=== PATIENT | male | born 1965 | race African-American/Black ===

== ENCOUNTER 2022-08-05 05:51 | Observation (INO) | payer OTHER ==
[2022-08-01 11:31] VITALS: BMI 37.3
[2022-08-05] MEDS ORDERED: Oxymetazoline HCl 0.05% ( 15 ML ) ONE (06:57)
[2022-08-05] MEDS ORDERED: Acetaminophen 325 MG TAB PO PRN (07:25)
[2022-08-05] MEDS ORDERED: Ondansetron ODT 4 MG TAB PO PRN (07:25)
[2022-08-05] MEDS ORDERED: Ondansetron PF 4 MG/2 ML Vial IVP PRN (07:25)
[2022-08-05] MEDS ORDERED: Acetaminophen W/ Codeine 5 ML UDCUP PO PRN (07:28)
[2022-08-05] MEDS ORDERED: SUGAMMADEX SODIUM 200 MG/2 ML VIAL ONE (08:13)
[2022-08-05] MEDS ORDERED: Midazolam HCl 2 mg/2 ml Vial ONE (08:15)
[2022-08-05] MEDS ORDERED: Lidocaine 1% PF 5 ML VIAL ONE (08:15)
[2022-08-05] MEDS ORDERED: Rocuronium Bromide 10 MG/ML (10ML VIAL) ONE ×2 (08:15→10:15)
[2022-08-05] MEDS ORDERED: Fentanyl 250 MCG/5 ML VIAL ONE (08:15)
[2022-08-05] MEDS ORDERED: Ondansetron PF 4 MG/2 ML Vial ONE ×2 (08:15→10:15)
[2022-08-05] MEDS ORDERED: Dexamethasone 20 MG/5 ML VIAL ONE ×2 (08:15→10:15)
[2022-08-05] MEDS ORDERED: PROPOFOL 0 ML ONE (08:15)
[2022-08-05] MEDS ORDERED: CEFAZOLIN 1 GM VIAL ONE (08:27)
[2022-08-05] MEDS ORDERED: Clindamycin/D5W 600 mg/50 ml Premix Bag ONE (08:44)
[2022-08-05] MEDS ORDERED: Lidocaine 1% w/Epinephrine 1:100K 20 ML VIAL ONE (09:00)
[2022-08-05] MEDS ORDERED: ePHEDrine Sulfate 50 MG/10 ML VIAL ONE (09:28)
[2022-08-05] MEDS ORDERED: Oxymetazoline HCl 0.05% ( 15 ML ) NASAL PRN (09:57)
[2022-08-05] MEDS ORDERED: Fentanyl 100 MCG/2 ML VIAL ONE (10:04)
[2022-08-05] MEDS ORDERED: PROPOFOL 20 ML ONE ×2 (10:05→10:15)
[2022-08-05] MEDS: Ibuprofen 400 MG TAB PO PRN ×2 (12:01→19:54)
[2022-08-05] MEDS: Nitrofurantoin Macrocrystal 50 MG CAP PO SCH (12:03)
[2022-08-05] MEDS: Tamsulosin HCl 0.4 MG CAP PO SCH (12:05)
[2022-08-05] MEDS: Losartan 25 MG TAB PO SCH (12:05)
[2022-08-05] MEDS: Sodium Chloride 0.65% Nasal 44 ML BOT EA NARE SCH ×2 (14:20→16:22)
[2022-08-05] MEDS: Clindamycin 150 MG CAP PO SCH (16:21)
[2022-08-06] MEDS: Clindamycin 150 MG CAP PO SCH ×2 (00:30→10:04)
[2022-08-06] MEDS: Sodium Chloride 0.65% Nasal 44 ML BOT EA NARE SCH ×2 (00:30→10:17)
[2022-08-06] MEDS: Ibuprofen 400 MG TAB PO PRN (06:01)
[2022-08-06] MEDS ORDERED: Rosuvastatin 20 MG TAB PO SCH (09:00)
[2022-08-06] MEDS: Losartan 25 MG TAB PO SCH (10:05)
[2022-08-06] MEDS: Tamsulosin HCl 0.4 MG CAP PO SCH (10:05)
[2022-08-06 11:33] VITALS: BP 143/79; TEMP 98
[2022-08-06] MEDS: Nitrofurantoin Macrocrystal 50 MG CAP PO SCH (11:33)
== END 2022-08-06 11:45 | disposition home or self-care (01) ==
LOC: CSHSDC 05:51 → CSHTELE 11:40 → INTOOBSV 11:40
PROVIDERS: ADMIT Otolaryngology Otolaryngic Allergy; ATTEND Otolaryngology Otolaryngic Allergy
PROC: 0CTPXZZ Resection of Tonsils, External Approach (ICD-10-PCS; principal; 2022-08-05)
PROC: 0CTQXZZ Resection of Adenoids, External Approach (ICD-10-PCS; 2022-08-05)
PROC: 0CTNXZZ Resection of Uvula, External Approach (ICD-10-PCS; 2022-08-05)
PROC: 09BM0ZZ Excision of Nasal Septum, Open Approach (ICD-10-PCS; 2022-08-05)
PROC: 09TL0ZZ Resection of Nasal Turbinate, Open Approach (ICD-10-PCS; 2022-08-05)
DX: G47.33 Obstructive sleep apnea (adult) (pediatric) (principal); J34.3 Hypertrophy of nasal turbinates; J34.2 Deviated nasal septum; J35.3 Hypertrophy of tonsils with hypertrophy of adenoids; K13.79 Other lesions of oral mucosa; J34.89 Other specified disorders of nose and nasal sinuses; I10 Essential (primary) hypertension; E78.00 Pure hypercholesterolemia, unspecified; Z87.442 Personal history of urinary calculi; Z79.899 Other long term (current) drug therapy; Z88.2 Allergy status to sulfonamides; Z87.891 Personal history of nicotine dependence; Z98.890 Other specified postprocedural states
CPT/HCPCS: 88302; 88304; 94760; J0690; J1100; J2250; J2405; J2704; J3010; J3490